=== PATIENT | female | born 1935 | race Two or more races ===

== ENCOUNTER 2018-08-29 15:09 | Emergency (ER) | payer SELFPAY ==
[~2018-08-29] VITALS: Ht 154.9 cm; Wt 67.1 kg
[2018-08-29 18:26] VITALS: BP 186/72
[2018-08-29] MEDS ORDERED: KETOROLAC TROMETH 60MG/2ML VIAL IM ONE (19:15)
== END 2018-08-29 20:25 | disposition home or self-care (01) ==
LOC: ER 15:12
DX: S82.035A Nondisplaced transverse fracture of left patella, initial encounter for closed fracture (principal); Z90.89 Acquired absence of other organs; W01.0XXA Fall on same level from slipping, tripping and stumbling without subsequent striking against object, initial encounter; Y93.89 Activity, other specified; Y92.89 Other specified places as the place of occurrence of the external cause; Y99.8 Other external cause status
CPT/HCPCS: 29505; 73562; 96372; 99283; J1885